=== PATIENT | female | born 1955 | race Caucasian/White ===

== ENCOUNTER 2018-08-13 13:42 | Outpatient (CLI) | payer MEDICARE, MEDICAID ==
--- NOTE | 2018-08-13 14:13 | RAD ---
XR Sinuses 3 View STANDARD History: [51 headache. J 34.89 Sinus pressure] Comparison: None. Findings: The frontal sinuses are well aerated. Mild decreased aeration of the right maxillary sinus which is slightly small relative to the left maxillary sinus. There are advanced degenerative changes of the cervical spine with multilevel disc space height loss and facet arthropathy. Mandible is intact. Impression: Likely chronic right maxillary sinusitis.
== END 2018-08-13 13:43 | disposition home or self-care (01) ==
LOC: RAD 13:42
PROVIDERS: ATTEND Nurse Practitioner Family
DX: J34.89 Other specified disorders of nose and nasal sinuses (principal); R51 Headache
CPT/HCPCS: 36415; 70220; 85025

== ENCOUNTER 2018-10-01 12:51 | Outpatient (CLI) | payer MEDICARE, MEDICAID ==
--- NOTE | 2018-10-01 14:10 | MRI ---
Exam: MRI cervical spine without contrast HISTORY: Cervical spondylosis with myelopathy. Severe pain. Headache. COMPARISON: None FINDINGS: Straightening of normal cervical lordosis. 3.8 mm of anterolisthesis of C3 upon C4, 2.6 mm of mar listhesis of C4 upon C5, 2.4 mm of retrolisthesis of C5 upon C6. Cervical spine vertebral body height is maintained. No fracture. No significant STIR hyperintensity to suggest vertebral body edema or ligamentous injury. Visualized brain parenchyma, cervicomedullary junction, cervical cord and the upper thoracic cord hav e a normal size and signal intensity. C2-C3: Moderate loss of disc space height. Generalized disc bulge flattens the ventral thecal sac. Mi ld central canal stenosis. Moderate to severe right and moderate left foraminal narrowing due to uncovertebral hypertrophy. C3-C4: Moderate loss of disc space height. Broad-based disc osteophyte complex effaces the ventral pearson barachnoid space. Mild flattening the ventral cord. Mild central canal stenosis. Bilateral facet hypertrophy and uncovertebral hypertrophy result in moderate right and mild to moderate left neural f oraminal narrowing. C4-C5: There is desiccation of the disc without significant loss of disc space height. Minimal centra l disc protrusion. Minimal central canal stenosis. Mild bilateral foraminal narrowing. There is bilateral right greater than left facet hypertrophy. C5-C6: Broad-based disc osteophyte complex with a left paracentral component. There is mass effect up on the left paracentral thecal sac and left hemicord. No cord hyperintensity. Mild central canal stenosis. Moderate bilateral neural foraminal narrowing. C6-C7: Broad-based disc osteophyte complex abuts the thecal sac. Mild central canal stenosis. Mild t o moderate right foraminal narrowing. Severe left foraminal narrowing due to uncovertebral hypertrophy. C7-T1: No significant central canal stenosis or neural foraminal narrowing IMPRESSION: 1. Varying degrees of central canal stenosis as detailed above. No evidence of high-grade central can al stenosis. 2. Severe left foraminal narrowing due to uncovertebral hypertrophy at C6-C7. 3. Spondylolisthesis as described above Transcribed Date/Time: 10/01/2018 2:28 PM
--- NOTE | 2018-10-01 15:29 | RAD ---
CERVICAL SPINE 6 VIEWS: Date: 10/01/18 INDICATION: Dizziness with neck pain. FINDINGS: There are carotid bulb calcifications seen on the right. Lateral masses are symmetric. There is anter olisthesis of C3 on C4 and C4 on C5. There is advanced disc degenerative disease at C5-6 and C6-7. Th ere is advanced facet osteoarthrosis at C4-5 and C5-6. There is slight accentuation of the anterolist hesis of C3-4 with flexion and some reduction with extension. The C4-5 anterolisthesis does not appre ciably translate with flexion, but does slightly reduce with extension. No additional translation mot ion is evident. Prevertebral soft tissues are normal appearing. IMPRESSION: Severe spondylosis cervical spine with abnormal translational motion seen at C3-4 and C4-5. POS: TPC
== END 2018-10-01 12:52 | disposition home or self-care (01) ==
LOC: TBSIIMAG 12:51
PROVIDERS: ATTEND Neurological Surgery
DX: M47.12 Other spondylosis with myelopathy, cervical region (principal); M54.2 Cervicalgia; M43.12 Spondylolisthesis, cervical region; M48.02 Spinal stenosis, cervical region
CPT/HCPCS: 72050; 72141

== ENCOUNTER 2018-12-04 05:50 | Outpatient (CLI) | payer MEDICARE, MEDICAID ==
[2018-12-04 10:21] LABS: Hemoglobin 13.3 g/dL (12.0-16.0); Mean Corpuscular HGB CONC 34.8 g/dL (32.0-36.0); Mean Corpuscular Hemoglobin 33.1 pg (27.0-31.0); Mean Platelet Volume 7.9 fL (7.4-10.4); Platelet Count 295 thou/uL (130-400); RBC Distribution Width 11.8 % (11.5-14.5); Red Blood Cell (RBC) Count 4.02 mill/uL (4.20-5.40); White Blood Cell (WBC) Count 12.3 thou/uL (4.8-10.8)
[2018-12-04 11:08] LABS: Anion Gap 13 mmol/L (10-20); BUN (Urea Nitrogen) 19 mg/dL (9.8-20.1); Calc. Creatinine Clearance 0 mL/min (70-130); Carbon Dioxide 25 mmol/L (23-31); Chloride 103 mmol/L (98-107); Estimated GFR-MDRD 81; Glucose 99 mg/dL (80-115); Potassium 3.9 mmol/L (3.5-5.1); Sodium 137 mmol/L (136-145)
== END 2018-12-04 05:51 | disposition home or self-care (01) ==
LOC: LABBT 05:50
PROVIDERS: ATTEND Neurological Surgery
DX: Z01.818 Encounter for other preprocedural examination (principal); M43.12 Spondylolisthesis, cervical region
CPT/HCPCS: 80048; 85027; 93005; 93010

== ENCOUNTER 2018-12-08 07:07 | Inpatient (IN) | payer MEDICARE, MEDICAID ==
[2018-12-04 09:07] VITALS: BMI 25.0
[2018-12-08] MEDS ORDERED: Levofloxacin 500 mg/D5W 100 ml Premix Bag ONE (08:27)
[2018-12-08] MEDS ORDERED: Clindamycin/D5W 900 mg/50 ml Premix Bag ONE (08:27)
[2018-12-08] MEDS ORDERED: Sodium Chloride 0.9% 10 ML ONE (09:41)
[2018-12-08] MEDS ORDERED: Fentanyl 100 MCG/2 ML VIAL ONE ×4 (10:09→14:35)
[2018-12-08] MEDS ORDERED: Glycopyrrolate 0.2 MG/ML 5 ML SYRINGE ONE (12:29)
[2018-12-08] MEDS ORDERED: Ondansetron PF 4 MG/2 ML Vial ONE (12:29)
[2018-12-08] MEDS ORDERED: ePHEDrine 50 MG/ML VIAL ONE (12:29)
[2018-12-08] MEDS ORDERED: PROPOFOL 200 MG/20 ML VIAL ONE (12:29)
[2018-12-08] MEDS ORDERED: Dexamethasone 20 MG/5 ML VIAL ONE (12:29)
[2018-12-08] MEDS ORDERED: Rocuronium Bromide 10 MG/ML (10ML VIAL) ONE (12:29)
[2018-12-08] MEDS ORDERED: PHENYLEPHRINE-NS 100 MCG/ML 10 ML SYRINGE ONE (12:29)
[2018-12-08] MEDS ORDERED: Succinylcholine Chloride 20 MG/ML 10 ml SYRINGE FS ONE (12:29)
[2018-12-08] MEDS ORDERED: Ketorolac Tromethamine 30 MG/ML VIAL ONE (12:29)
--- NOTE | 2018-12-08 15:38 | OP ---
DATE OF PROCEDURE: 12/08/2018 BREAKER OPERATOR: Nick Morocho PA-C PROCEDURES PERFORMED: Anterior cervical diskectomy C3-C4 and C4-C5, interbody arthrodesis, intervertebral biomechanical device, local morselized autograft, demineralized bone matrix, anterior titanium instrumentation, C3-C4 and C4-C5. DESCRIPTION OF PROCEDURE: The patient was brought to the operating room and intubated. She was positioned supine with the head in modest extension on a gel-filled donut. An incision was made in the right precervical area and dissected medial to the sternocleidomastoid muscle, identified the anterior cervical spinal, and the level was confirmed by x-ray. We debrided the anterior osteophytes, placed distraction across the disk spaces, completely decompressing the neural elements and the spinal cord at C3-C4 and C4-C5. Next, the bony endplates were decorticated for the purpose of arthrodesis and appropriate-sized intervertebral biomechanical PEEK device was brought into the field and filled with demineralized bone matrix and local morselized autograft, and tapped in place securely at both C3-C4 and at C4-C5. Next, an anterior plate was brought into the field and secured to C3, C4, and C5 using two 14-mm screws at each level. The wound was then extensively irrigated and MAC hemostasis was secured. The wound was closed in anatomic layers over drain. Job ID: [id number]
[2018-12-08] MEDS ORDERED: traMADol HCl 50 MG TAB PO PRN (16:19)
[2018-12-08] MEDS ORDERED: diphenhydrAMINE 50 MG/ML VIAL IVP PRN (16:19)
[2018-12-08] MEDS ORDERED: Mag-Al 1200 mg/1200 mg/30 ML UDCUP PO PRN (16:19)
[2018-12-08] MEDS ORDERED: Ondansetron PF 4 MG/2 ML Vial IVP PRN (16:19)
[2018-12-08] MEDS ORDERED: Promethazine HCl 12.5 MG SUPP PR PRN (16:19)
[2018-12-08] MEDS ORDERED: Milk Of Magnesia 30 ML UDCUP PO PRN (16:19)
[2018-12-08] MEDS ORDERED: Morphine 4 MG/ML VIAL SLOW IVP PRN ×4 (16:19→16:23)
[2018-12-08] MEDS ORDERED: Promethazine 25 MG TAB PO PRN (16:19)
[2018-12-08] MEDS ORDERED: tiZANidine HCl 4 MG TAB PO PRN (16:19)
[2018-12-08] MEDS ORDERED: Promethazine HCl 25 MG/ML VIAL IM PRN (16:19)
[2018-12-08] MEDS ORDERED: diphenhydrAMINE 25 MG CAP PO PRN (16:19)
[2018-12-08] MEDS: traMADol HCl 50 MG TAB PO PRN ×2 (18:18→23:24)
[2018-12-08] MEDS: Clindamycin/D5W 900 MG in Premix Bag 1 BAG IVPB SCH (18:19)
[2018-12-08] MEDS: Sodium Chloride 0.9% 1,000 ML IV SCH (18:21)
--- NOTE | 2018-12-08 18:35 | PDOC.HOSPP ---
- Subjective Subjective: Patient seen and examined for med mngt. No CP/SOB. No new complaints. - Objective Vital Signs & Weight: Vital Signs (12 hours) Temp Pulse Resp BP Pulse Ox 12/08/18 15:40 97.9 F 76 18 151/79 H 94 L Weight Weight 150 lb Additional Labs: Laboratory Tests 12/04/18 12/04/18 09:57 09:57 Hgb 13.3 Potassium 3.9 Creatinine 0.73 EKG Reviewed by me: Yes (SR) ROS - Review of Systems All systems: All other ROS were reviewed and found negative. Respiratory: denies: cough, dry, shortness of breath, hemoptysis, SOB with excertion, pleuritic pain, sputum, wheezing, other Cardiovascular: denies: chest pain, palpitations, orthopnea, paroxysmal noc. dyspnea, edema, light headedness, other Gastrointestinal: denies: nausea, vomitting, abdominal pain, diarrhea, constipation, melena, hematochezia, other - Medication Medications: Active Medications Generic Name Dose Route Start Last Admin Trade Name Freq PRN Reason Stop Dose Admin Sodium Chloride 1,000 mls @ 75 mls/hr 12/08/18 16:19 12/08/18 18:21 Normal Saline 0.9% IV 1,000 mls .[id number] SILVERIO Administration Clindamycin Phosphate/Dextrose 50 mls @ 100 mls/hr 12/08/18 17:00 12/08/18 18 :19 900 mg/ Device IVPB 50 mls 0100,0900,1700 SILVERIO Administration Tramadol HCl 100 mg 12/08/18 16:19 12/08/18 18:18 Ultram PO 100 mg Q6H PRN Administration PAIN (4-6) - Exam NAD Heart: RRR, no rubs Respiratory: CTAB, no rales Gastrointestinal: soft, non-tender, normal bowel sounds Extremities: no edema Neurological: no new deficit Hosp A/P (1) HTN (hypertension) Code(s): I10 - ESSENTIAL (PRIMARY) HYPERTENSION (2) HLD (hyperlipidemia) Code(s): E78.5 - HYPERLIPIDEMIA, UNSPECIFIED (3) Anxiety Code(s): F41.9 - ANXIETY DISORDER, UNSPECIFIED (4) Mild intermittent asthma Code(s): J45.20 - MILD INTERMITTENT ASTHMA, UNCOMPLICATED - Plan Resume Toprol XL/Lisinopril Resume Cymbalta Add PRN Nebs Cont other meds as below Will follow PRN
[2018-12-08] MEDS ORDERED: Rosuvastatin 20 MG TAB PO SCH (21:00)
[2018-12-08] MEDS ORDERED: DULoxetine 60 MG CAP PO SCH (21:00)
[2018-12-08] MEDS: Metoprolol Tartrate 25 MG TAB PO SCH (21:27)
[2018-12-08] MEDS: Lisinopril 10 MG TAB PO SCH (21:27)
[2018-12-09] MEDS: Clindamycin/D5W 900 MG in Premix Bag 1 BAG IVPB SCH ×2 (00:49→08:49)
[2018-12-09 07:28] VITALS: BP 167/79; TEMP 97.5
[2018-12-09] MEDS: Sodium Chloride 0.9% 1,000 ML IV SCH (07:33)
[2018-12-09] MEDS: Lisinopril 10 MG TAB PO SCH (08:49)
[2018-12-09] MEDS: Metoprolol Tartrate 25 MG TAB PO SCH (08:50)
--- NOTE | 2018-12-09 09:09 | DIS ---
DATE OF ADMISSION: 12/08/2018 DATE OF DISCHARGE: 12/09/2018 The patient is a 63-year-old female, who underwent C3-C5 ACDF. Following surgery, she was transitioned to the Med/Surg floor, where her pain has been well-controlled with p.o. medications. She has been tolerating a regular diet, and she has been voiding appropriately. She has been up ambulating easily up and down the sanders. There has been no incisional drainage issues. The patient did have BRUNO drain, which had 30 mL out overnight. This will be removed on postoperative day #1, and the patient will be dismissed following the removal. Discussed home care precautions. The patient has been provided with scripts for tramadol and Zanaflex. I will follow up in 2 weeks. Job ID: [id number]
== END 2018-12-09 11:23 | disposition home or self-care (01) | DRG 472 ==
LOC: SDC 07:07 → SURG B 07:43
PROVIDERS: ADMIT Neurological Surgery; ATTEND Neurological Surgery
PROC: 0RG20A0 Fusion of 2 or more Cervical Vertebral Joints with Interbody Fusion Device, Anterior Approach, Anterior Column, Open Approach (ICD-10-PCS; principal; 2018-12-08)
PROC: 0RB30ZZ Excision of Cervical Vertebral Disc, Open Approach (ICD-10-PCS; 2018-12-08)
PROC: 00NW0ZZ Release Cervical Spinal Cord, Open Approach (ICD-10-PCS; 2018-12-08)
DX: M43.12 Spondylolisthesis, cervical region (principal); M47.12 Other spondylosis with myelopathy, cervical region; I10 Essential (primary) hypertension; I25.10 Atherosclerotic heart disease of native coronary artery without angina pectoris; E11.9 Type 2 diabetes mellitus without complications; E78.5 Hyperlipidemia, unspecified; J45.20 Mild intermittent asthma, uncomplicated; F41.9 Anxiety disorder, unspecified; M19.90 Unspecified osteoarthritis, unspecified site; F17.210 Nicotine dependence, cigarettes, uncomplicated; Z88.5 Allergy status to narcotic agent; Z88.0 Allergy status to penicillin
CPT/HCPCS: 76000; C1713; C1776; J1956; J2270; J3010; J3490

== ENCOUNTER 2021-04-26 09:09 | Outpatient (CLI) | payer MEDICARE, MEDICAID | END 2021-04-26 09:10 | disposition home or self-care (01) | LOC: BICMAMMO 09:09 | PROVIDERS: ATTEND Family Medicine | DX: Z12.31 Encounter for screening mammogram for malignant neoplasm of breast (principal) | CPT/HCPCS: 77063; 77067 ==